=== PATIENT | female | born 1975 | race Caucasian/White ===

== ENCOUNTER 2024-11-05 11:19 | Emergency (ER) | payer OTHER ==
[2024-11-05] MEDS ORDERED: Sodium Chloride 0.9% 10 ML Syringe FLUSH PRN (11:26)
[2024-11-05 11:37] LABS: BASOPHILS PERCENT AUTO 0.3 % (0.0-1.0); EOSINOPHILS ABSOLUTE AUTO 0.1 K/mm3 (0.0-0.4); EOSINOPHILS PERCENT AUTO 0.6 % (0.0-6.0); HEMATOCRIT 55.2 % (37.0-47.0); HEMOGLOBIN 17.8 gm/dl (12.0-16.0); IMMATURE GRAN ABSOLUTE AUTO 0.01 K/mm3 (0.00-0.05); IMMATURE GRAN PERCENT AUTO 0.1 % (0.0-0.4); LYMPHOCYTES ABSOLUTE AUTO 4.7 K/mm3 (1.0-4.8); LYMPHOCYTES PERCENT AUTO 51.7 % (24.0-44.0); MEAN CORPUSCULAR HEMOGLOBIN 28.2 pg (28.0-32.0); MEAN CORPUSCULAR HGB CONC 32.2 g/dl (32.0-36.0); MEAN CORPUSCULAR VOLUME 87.3 fl (83.0-99.0); MEAN PLATELET VOLUME 10.8 fl (9.4-12.3); MONOCYTES ABSOLUTE AUTO 0.3 K/mm3 (0.0-0.8); MONOCYTES PERCENT AUTO 3.3 % (0.0-8.0); PLATELET COUNT,PLT 258 K/mm3 (150-400); RED BLOOD CELL COUNT 6.32 M/mm3 (4.10-5.30); WHITE BLOOD CELL COUNT,WBC 9.04 K/mm3 (3.9-11.3)
[2024-11-05 11:49] LABS: A/G RATIO 1.2 (1-2); ALBUMIN 3.6 g/dl (3.4-5.0); ANION GAP 12.2 (5-15); BILIRUBIN TOTAL 0.6 mg/dL (0.2-1.0); CALCIUM 8.9 mg/dL (8.5-10.1); EST CRCL DRUG DOSING (CG) 60.4 mL/min; MAGNESIUM 2.3 mg/dL (1.8-2.4); POTASSIUM,K 4.2 mEq/L (3.5-5.1); PROTEIN TOTAL,TP 6.6 g/dl (6.4-8.2)
[2024-11-05] MEDS: diphenhydrAMINE 50 MG/ML SDV IVPUSH ONE (12:01)
[2024-11-05] MEDS: methylPREDNISolone Sodium Succinate 125 MG/2 ML SDV IVPUSH ONE (12:03)
[2024-11-05] MEDS: Famotidine 20 MG/2 ML SDV IVPUSH ONE (12:07)
[2024-11-05] MEDS: Sodium Chloride 0.9% 1,000 ML IV SCH (12:09)
[2024-11-05] MEDS: Ondansetron 4 MG/2 ML SDV IVPUSH ONE (12:11)
[2024-11-05 12:30] LABS: IRON,FE 400 ug/dL (50-170); PERCENT FE SATURATION 127 % (20-55); TRANSFERRIN 251 mg/dL (202-364)
[2024-11-05 12:34] LABS: TOTAL IRON BINDING CAPACITY 314 ug/dL (100-400)
== END 2024-11-05 14:25 | disposition home or self-care (01) ==
LOC: JD.ED 11:19
DX: T78.2XXA Anaphylactic shock, unspecified, initial encounter (principal); T45.4X5A Adverse effect of iron and its compounds, initial encounter; I10 Essential (primary) hypertension; I25.10 Atherosclerotic heart disease of native coronary artery without angina pectoris; Z79.899 Other long term (current) drug therapy; Z79.84 Long term (current) use of oral hypoglycemic drugs; Z88.8 Allergy status to other drugs, medicaments and biological substances
CPT/HCPCS: 36415; 71045; 80053; 82947; 83540; 83735; 84466; 84484; 85025; 93005; 96361; 96374; 96375; 99285; J1200; J2405; J2919; J7030; 93010; 99284